=== PATIENT | male | born 1970 ===

== ENCOUNTER → 2017-09-15 | Emergency (ER) | payer OTHER ==
[~2017-09-15] VITALS: Ht 175.3 cm; Wt 72.6 kg
[~2017-09-15] MED LIST: DOLOGEN CAPLET1 EACH PO
== END | disposition left against medical advice (07) ==
LOC: ER 01:33
DX: Z53.20 Procedure and treatment not carried out because of patient's decision for unspecified reasons (principal)

== ENCOUNTER 2018-01-02 11:50 | Emergency (ER) | payer OTHER ==
[~2018-01-02] VITALS: Ht 175.3 cm; Wt 72.6 kg
[2018-01-02] MEDS ORDERED: KETO10TA2 PO (14:46)
[2018-01-02] MEDS ORDERED: NORFLEX100MG PO (14:46)
== END 2018-01-02 14:51 | disposition home or self-care (01) ==
LOC: ER 11:50
DX: M54.2 Cervicalgia (principal); M25.511 Pain in right shoulder